=== PATIENT | female | born 1980 | race Caucasian/White ===

== ENCOUNTER → 2018-03-10 | Outpatient (REF) | payer OTHER | LOC: M SFHCLERA 16:23 | DX: J02.9 Acute pharyngitis, unspecified (principal) ==

== ENCOUNTER → 2018-11-05 | Outpatient (REF) | payer OTHER | LOC: M SFHCLERA 13:22 | PROVIDERS: ATTEND Physician Assistant | DX: J02.9 Acute pharyngitis, unspecified (principal) ==

== ENCOUNTER → 2020-03-24 | Outpatient (CLI) | payer OTHER ==
[~2020-03-24] MED LIST: GABA-843 PO; MECL-86 PO; ONDA-83 PO; SIME80TA12 PO; [UNRECOGNIZED DRUG - OTHER]
== END ==
LOC: M LABSMTC 12:28
PROVIDERS: ATTEND Anesthesiology
DX: Z01.812 Encounter for preprocedural laboratory examination (principal); Z20.828 Contact with and (suspected) exposure to other viral communicable diseases
CPT/HCPCS: C9803; U0003

== ENCOUNTER 2020-03-29 06:35 | Day surgery (SDC) | payer OTHER ==
[~2020-03-29] VITALS: Ht 165.1 cm; Wt 59.9 kg
[2020-03-29] MEDS ORDERED: NS 1,000 ML IV ONE (07:00)
[2020-03-29] MEDS ORDERED: LIDOCAINE 2% 100MG/5ML SDV (FOR ANES.) As Ordered ONE (07:21)
[2020-03-29] MEDS ORDERED: propofoL 200 MG/20 ML VIAL As Ordered ONE ×2 (07:24→07:50)
--- NOTE | 2020-03-29 07:51 | ROOR ---
Patient Name: Mell Welch Procedure Date: 03/29/2020 7:33 AM Date of : 1980 Age: 40 Room: [facility] Gender: Female Note Status: Finalized Procedure: Upper Endoscopy + Biopsies Indications: Abdominal bloating, Nausea with vomiting Providers: Nick Beaver MD Referring MD: AMRITA MORGAN MD Requesting Provider: Medicines: Monitored Anesthesia Care Complications: No immediate complications. Procedure: Pre-Anesthesia Assessment: - The heart rate, respiratory rate, oxygen saturations, blood pressure, adequacy of pulmonary ventilation, and response to care were monitored throughout the procedure. The Endoscope was introduced through the mouth, and advanced to the second part of duodenum. The upper GI endoscopy was accomplished without difficulty. The patient tolerated the procedure well. Findings: The Z-line was regular and was found 35 cm from the incisors. Multiple biopsies were obtained with cold forceps for evaluation to rule out Villa's Esophagus randomly at the gastroesophageal junction. A small hiatal hernia was present. Evidence of a gastric bypass was found. A gastric pouch with a small size was found. The staple line appeared intact. The gastrojejunal anastomosis was characterized by ulceration. This was traversed. The adwtt-nr-ysccisd limb was characterized by healthy appearing mucosa. Biopsies were taken with a cold forceps for Helicobacter pylori testing. Biopsies for histology were taken with a cold forceps for evaluation of celiac disease. The exam was otherwise without abnormality. Impression: - Z-line regular, 35 cm from the incisors. - Small hiatal hernia. - Gastric bypass with a small-sized pouch and intact staple line. Gastrojejunal anastomosis characterized by ulceration. Biopsied. - The examination was otherwise normal. - Multiple biopsies were obtained at the gastroesophageal junction. - The examination was otherwise normal. Recommendation: - Patient has a contact number available for emergencies. The signs and symptoms of potential delayed complications were discussed with the patient. Return to normal activities tomorrow. Written discharge instructions were provided to the patient. - Resume previous diet. - Discharge patient to home. - Follow an antireflux regimen. - Use Prilosec (omeprazole) 40 mg PO BID. - Use sucralfate tablets 1 gram PO QID. - Await pathology results. - Telephone GI clinic for pathology results in 1 week. - Return to referring physician. - The findings and recommendations were discussed with the patient. Nick Beaver MD Nick Beaver MD 03/29/2020 7:51:02 AM Electronically signed by Nick Beaver MD Number of Addenda: 0 Note Initiated On: 03/29/2020 7:33 AM Estimated Blood Loss: Estimated blood loss: none.
--- NOTE | 2020-03-29 08:11 | ROOR ---
Patient Name: Mell Welch Procedure Date: 03/29/2020 7:33 AM Date of : 1980 Age: 40 Room: [facility] Gender: Female Note Status: Finalized Procedure: Total Colonoscopy to Cecum + Ileoscopy + Bx. Indications: Change in bowel habits, Constipation Providers: Nick Beaver MD Referring MD: AMRITA MORGAN MD Requesting Provider: Medicines: Monitored Anesthesia Care Complications: No immediate complications. Procedure: Pre-Anesthesia Assessment: - The heart rate, respiratory rate, oxygen saturations, blood pressure, adequacy of pulmonary ventilation, and response to care were monitored throughout the procedure. The Colonoscope was introduced through the anus and advanced to the cecum, identified by appendiceal orifice and ileocecal valve. The colonoscopy was performed without difficulty. The patient tolerated the procedure well. The quality of the bowel preparation was good. Findings: The perianal and digital rectal examinations were normal. Non-bleeding internal hemorrhoids were found during retroflexion. The hemorrhoids were small and Grade I (internal hemorrhoids that do not prolapse). No other significant abnormalities were identified in a careful examination of the remainder of the colon. The terminal ileum appeared normal. Biopsies were taken with a cold forceps in the proximal ileum for histology. Biopsies for histology were taken with a cold forceps from the ascending colon, transverse colon and descending colon for evaluation of microscopic colitis. The exam was otherwise without abnormality on direct and retroflexion views. Impression: - Non-bleeding internal hemorrhoids. - The examined portion of the ileum was normal. - The examination was otherwise normal on direct and retroflexion views. - Biopsies were taken with a cold forceps for histology in the proximal ileum. - Biopsies were taken with a cold forceps from the ascending colon, transverse colon and descending colon for evaluation of microscopic colitis. - The exam was otherwise normal to the cecum. Recommendation: - Patient has a contact number available for emergencies. The signs and symptoms of potential delayed complications were discussed with the patient. Return to normal activities tomorrow. Written discharge instructions were provided to the patient. - High fiber diet. - Discharge patient to home. - Continue present medications. - Await pathology results. - Telephone GI clinic for pathology results in 1 week. - Repeat colonoscopy in 10 years for screening purposes. - Return to referring physician. - The findings and recommendations were discussed with the patient. Nick Beaver MD Nick Beaver MD 03/29/2020 8:10:46 AM Electronically signed by iNck Beaver MD Number of Addenda: 0 Note Initiated On: 03/29/2020 7:33 AM Estimated Blood Loss: Estimated blood loss: none.
[2020-03-29 08:41] VITALS: BP 117/69
== END 2020-03-29 08:43 | disposition home or self-care (01) ==
LOC: M OPP 06:35
PROVIDERS: ATTEND Internal Medicine Gastroenterology
DX: K64.0 First degree hemorrhoids (principal); R19.4 Change in bowel habit; K44.9 Diaphragmatic hernia without obstruction or gangrene; K28.9 Gastrojejunal ulcer, unspecified as acute or chronic, without hemorrhage or perforation; R14.0 Abdominal distension (gaseous); R11.2 Nausea with vomiting, unspecified; K58.9 Irritable bowel syndrome, unspecified; K21.9 Gastro-esophageal reflux disease without esophagitis; F17.210 Nicotine dependence, cigarettes, uncomplicated; Z79.899 Other long term (current) drug therapy; Z98.84 Bariatric surgery status

== ENCOUNTER → 2021-04-19 | Outpatient (CLI) | payer OTHER ==
[~2021-04-19] MED LIST changes: +GABA-282 PO; -GABA-843 PO; +IRON27TA2 PO; +OMEP40CA4 PO
--- NOTE | 2021-04-19 13:13 | REP ---
INDICATION: TENSION PNEUMOTHORAX. COMPARISON: 02/06/2015 portable exam TECHNIQUE: PA and lateral FINDINGS: The superior mediastinal structures are midline. The cardiac silhouette is unremarkable in size, shape, and position. The diaphragmatic surfaces of the lungs are regular, and the costophrenic angles are clear. The pulmonary jeffers are clear. The imaged osseous structures are intact. The lung jeffers are somewhat hyperexpanded. IMPRESSION: There is no acute cardiopulmonary disease. <Electronically signed by Jas Bledsoe > 04/19/21 [id number]
== END ==
LOC: M ADAMS 11:22
PROVIDERS: ATTEND Physician Assistant
DX: J93.0 Spontaneous tension pneumothorax (principal)

== ENCOUNTER → 2021-04-19 | Outpatient (REF) | payer OTHER ==
[2021-04-19 12:29] LABS: BASO # 0.1 10^3/uL (0.0-0.2); BASO % 0.7 % (0.0-1.0); EOS # 0.2 10^3/uL (0.0-0.5); EOS % 2.2 % (0.0-3.0); HEMATOCRIT 37.6 % (36.0-47.0); LYMPH # 1.9 10^3/uL (1.5-5.0); LYMPH % 27.3 % (24.0-44.0); MEAN CORPUSCULAR HEMOGLOBIN 29.6 pg (27.0-33.0); MEAN CORPUSCULAR HGB CONC 31.9 g/dl (32.0-36.5); MEAN CORPUSCULAR VOLUME 92.8 fl (80.0-96.0); MONO # 0.5 10^3/uL (0.0-0.8); MONO % 7.2 % (2.0-8.0); NEUTROPHILS # 4.3 10^3/uL (1.5-8.5); NEUTROPHILS % 62.2 % (36.0-66.0); PLATELET COUNT, AUTOMATED 361 10^3/uL (150-450); RED BLOOD COUNT 4.05 10^6/uL (4.00-5.40); WHITE BLOOD COUNT 6.8 10^3/uL (4.0-10.0)
[2021-04-19 13:33] LABS: ALBUMIN 3.4 GM/DL (3.2-5.2); ALT/SGPT 19 U/L (12-78); BILIRUBIN,TOTAL 0.3 MG/DL (0.2-1.0); BLOOD UREA NITROGEN 7 MG/DL (7-18); CALCIUM LEVEL 8.9 MG/DL (8.5-10.1); CARBON DIOXIDE LEVEL 29 MEQ/L (21-32); CHLORIDE LEVEL 110 MEQ/L (98-107); CREATININE FOR GFR 0.55 MG/DL (0.55-1.30); FERRITIN 16 NG/ML (8-252); FOLATE 8.1 NG/ML; FREE T4 0.97 NG/DL (0.76-1.46); GLOMERULAR FILTRATION RATE > 60.0 (>58); GLUCOSE, FASTING 78 MG/DL (70-100); IRON (FE) 83 UG/DL (50-170); PERCENT SATURATION 24.6 % (13.2-45.0); POTASSIUM SERUM 4.3 MEQ/L (3.5-5.1); SODIUM LEVEL 141 MEQ/L (136-145); THYROID STIMULATING HORMONE 0.543 uIU/ML (0.358-3.740); TOTAL 25(OH) VITAMIN D 14.8 NG/ML (30.0-100.0); TOTAL IRON BINDING CAPACITY 338 UG/DL (250-450); TOTAL PROTEIN 6.5 GM/DL (6.4-8.2); VITAMIN B12 LEVEL 339 PG/ML
[2021-04-19 13:45] LABS: HIV 1&2 SCREEN CENTAUR NEGATIVE (NEGATIVE)
[2021-04-20 18:09] LABS: ANA (HEP2) Negative (.)
== END ==
LOC: M SFHCADAM 10:51
PROVIDERS: ATTEND Physician Assistant
DX: R23.8 Other skin changes (principal); R11.0 Nausea; R21 Rash and other nonspecific skin eruption; R63.4 Abnormal weight loss; F32.1 Major depressive disorder, single episode, moderate

== ENCOUNTER → 2022-01-15 | Outpatient (REF) | LOC: M LAB 11:02 | PROVIDERS: ATTEND Nurse Practitioner Adult Health | DX: Z00.00 Encounter for general adult medical examination without abnormal findings (principal) ==

== ENCOUNTER → 2022-01-24 | Outpatient (REF) | LOC: M EMP 10:51 | PROVIDERS: ATTEND Family Medicine | DX: Z11.52 Encounter for screening for COVID-19 (principal) ==

== ENCOUNTER 2022-02-27 09:54 | Emergency (ER) | payer OTHER ==
[~2022-02-27] VITALS: Ht 162.6 cm; Wt 56.2 kg
[2022-02-27] MEDS ORDERED: SILV1CRE60 TOP (12:00)
[2022-02-27 12:10] VITALS: BP 135/70
== END 2022-02-27 12:11 | disposition home or self-care (01) ==
LOC: M ED 09:54
DX: T23.132A Burn of first degree of multiple left fingers (nail), not including thumb, initial encounter (principal); T31.0 Burns involving less than 10% of body surface; X13.1XXA Other contact with steam and other hot vapors, initial encounter; Y99.0 Civilian activity done for income or pay; F17.200 Nicotine dependence, unspecified, uncomplicated

== ENCOUNTER → 2023-03-25 | Outpatient (CLI) | payer OTHER ==
[~2023-03-25] MED LIST changes: +SILV1CRE60 TOP
[2023-03-25 12:11] LABS: HEPATITIS C VIRUS ABY INDEX 0.06 INDEX (<0.8)
[2023-03-26 16:12] LABS: HSV TYPE I IgG SPECIFIC <0.91 index (0.00-0.90)
== END ==
LOC: M LAB 09:11
PROVIDERS: ATTEND Nurse Practitioner Family
DX: Z11.3 Encounter for screening for infections with a predominantly sexual mode of transmission (principal); Z11.4 Encounter for screening for human immunodeficiency virus [HIV]

== ENCOUNTER → 2023-04-16 | Outpatient (REF) | payer OTHER | LOC: M LAB REF 12:04 | PROVIDERS: ATTEND Physician Assistant | DX: B34.9 Viral infection, unspecified (principal) ==

== ENCOUNTER → 2023-04-22 | Outpatient (CLI) | payer OTHER | LOC: M RAD 12:13 | PROVIDERS: ATTEND Physician Assistant | DX: R14.0 Abdominal distension (gaseous) (principal); R11.2 Nausea with vomiting, unspecified; R63.4 Abnormal weight loss; Z53.9 Procedure and treatment not carried out, unspecified reason ==

== ENCOUNTER → 2023-05-07 | Outpatient (CLI) | payer OTHER ==
[~2023-05-07] MED LIST changes: +GASTROGRAFIN SOLUTION 30ML As Ordered ONE; +ISOVUE-370 76% 100ML VIAL As Ordered ONE
== END ==
LOC: M RAD 07:58
PROVIDERS: ATTEND Physician Assistant
DX: R14.0 Abdominal distension (gaseous) (principal); R11.2 Nausea with vomiting, unspecified; R63.4 Abnormal weight loss; Z98.84 Bariatric surgery status
CPT/HCPCS: 74178; Q9963; Q9967

== ENCOUNTER → 2023-05-14 | Outpatient (CLI) | payer OTHER ==
[~2023-05-14] MED LIST changes: -GASTROGRAFIN SOLUTION 30ML As Ordered ONE; -ISOVUE-370 76% 100ML VIAL As Ordered ONE
== END ==
LOC: M ADAMS 14:09
PROVIDERS: ATTEND Physician Assistant
DX: M79.642 Pain in left hand (principal)

== ENCOUNTER → 2023-05-14 | Outpatient (REF) | payer OTHER ==
[2023-05-14 18:00] LABS: BASO # 0.1 10^3/uL (0.0-0.2); EOS # 0.2 10^3/uL (0.0-0.5); EOS % 3.5 % (0.0-3.0); HEMATOCRIT 34.1 % (36.0-47.0); HEMOGLOBIN 10.4 g/dl (12.0-15.5); MEAN CORPUSCULAR HEMOGLOBIN 23.3 pg (27.0-33.0); MEAN CORPUSCULAR HGB CONC 30.5 g/dl (32.0-36.5); MEAN CORPUSCULAR VOLUME 76.5 fl (80.0-96.0); MONO # 0.6 10^3/uL (0.0-0.8); MONO % 10.6 % (2.0-8.0); NEUTROPHILS # 3.1 10^3/uL (1.5-8.5); NEUTROPHILS % 51.6 % (36.0-66.0); PLATELET COUNT, AUTOMATED 377 10^3/uL (150-450); RED BLOOD COUNT 4.46 10^6/uL (4.00-5.40); WHITE BLOOD COUNT 6.1 10^3/uL (4.0-10.0)
[2023-05-14 18:21] LABS: HEMOGLOBIN A1c 5.1 % (4.0-6.0)
[2023-05-14 18:26] LABS: C REACTIVE PROTEIN QUANTITATIV < 0.40 MG/DL (<1.0)
[2023-05-14 18:29] LABS: RHEUMATOID FACTOR QUANT < 3.5 IU/ML (<14)
[2023-05-14 18:30] LABS: LIPASE 40 U/L (12-53)
[2023-05-14 18:32] LABS: ALBUMIN 4.1 G/DL (3.2-5.2); ALKALINE PHOSPHATASE 98 U/L (46-116); ALT/SGPT 10 U/L (7.0-40); AMYLASE 107 U/L (30-118); AST/SGOT 20 U/L (<34); BILIRUBIN,TOTAL 0.2 MG/DL (0.3-1.2); BLOOD UREA NITROGEN 8 MG/DL (9-23); CALCIUM LEVEL 9.5 MG/DL (8.5-10.1); CARBON DIOXIDE LEVEL 28 MMOL/L (20-31); CHLORIDE LEVEL 105 MMOL/L (98-107); FERRITIN 1.7 NG/ML (7.3-270.7); FOLATE 10.2 NG/ML (>5.4); FREE T4 0.87 NG/DL (0.89-1.76); GLOMERULAR FILTRATION RATE > 60.0 (>58); GLUCOSE, FASTING 89 MG/DL (60-100); IRON (FE) 11 UG/DL (50-170); PERCENT SATURATION 2.5 % (13.2-45.0); POTASSIUM SERUM 4.5 MMOL/L (3.5-5.1); SODIUM LEVEL 139 MMOL/L (136-145); TOTAL IRON BINDING CAPACITY 444 UG/DL (250-425); TOTAL PROTEIN 7.3 G/DL (5.7-8.2)
[2023-05-14 18:33] LABS: TOTAL 25(OH) VITAMIN D 9.9 NG/ML (20.0-100.0)
[2023-05-14 18:34] LABS: VITAMIN B12 LEVEL 404 PG/ML (211-911)
== END ==
LOC: M SFHCADAM 13:51
PROVIDERS: ATTEND Physician Assistant
DX: M79.641 Pain in right hand (principal); R63.4 Abnormal weight loss; R14.0 Abdominal distension (gaseous); R11.2 Nausea with vomiting, unspecified; Z98.84 Bariatric surgery status; E55.9 Vitamin D deficiency, unspecified; F17.210 Nicotine dependence, cigarettes, uncomplicated; F33.2 Major depressive disorder, recurrent severe without psychotic features; K21.9 Gastro-esophageal reflux disease without esophagitis

== ENCOUNTER → 2023-05-29 | Outpatient (CLI) | payer OTHER ==
[~2023-05-29] VITALS: Ht 162.6 cm; Wt 50.9 kg
[~2023-05-29] MED LIST changes: +ALBUTEROL SULFATE 2.5MG/0.5ML INH NEB SOLN INH PRN; +EPINEPHrine INJ 1 MG/ML 1ML AMP IM PRN; +IRON SUCROSE 500 MG in NS 250 ML OVER 4 HRS IV ONE; +NS 1,000 ML IV SCH; +diphenhydrAMINE 50MG/ML VIAL IV PRN; +methylPREDNISolone 125MG 2ML VIAL IV PRN
[2023-05-29 09:31] VITALS: BP 116/65; O2SAT 100
[2023-05-29 11:00] VITALS: BP 106/55; O2SAT 98
[2023-05-29 12:00] VITALS: BP 118/58; O2SAT 98
[2023-05-29 13:00] VITALS: BP 107/61; O2SAT 96
[2023-05-29 13:45] VITALS: BP 120/62; O2SAT 98
== END ==
LOC: M INFU 09:01
PROVIDERS: ATTEND Physician Assistant
DX: D50.9 Iron deficiency anemia, unspecified (principal)
CPT/HCPCS: 96365; 96366; J1756

== ENCOUNTER → 2023-11-11 | Outpatient (CLI) | payer OTHER ==
[~2023-11-11] MED LIST changes: -ALBUTEROL SULFATE 2.5MG/0.5ML INH NEB SOLN INH PRN; -EPINEPHrine INJ 1 MG/ML 1ML AMP IM PRN; -IRON SUCROSE 500 MG in NS 250 ML OVER 4 HRS IV ONE; -NS 1,000 ML IV SCH; -diphenhydrAMINE 50MG/ML VIAL IV PRN; -methylPREDNISolone 125MG 2ML VIAL IV PRN
== END ==
LOC: M RAD 15:43
PROVIDERS: ATTEND Physician Assistant
DX: M50.322 Other cervical disc degeneration at C5-C6 level (principal)

== ENCOUNTER → 2024-04-03 | Outpatient (CLI) | payer OTHER ==
[~2024-04-03] MED LIST changes: +GABA-1172 PO; -GABA-282 PO
[2024-04-03 11:40] LABS: BASO % 0.5 % (0.0-1.0); EOS # 0.1 10^3/uL (0.0-0.5); EOS % 1.9 % (0.0-3.0); LYMPH # 1.8 10^3/uL (1.5-5.0); LYMPH % 28.4 % (24.0-44.0); MEAN CORPUSCULAR HGB CONC 33.3 g/dl (32.0-36.5); MEAN CORPUSCULAR VOLUME 89.9 fl (80.0-96.0); MONO # 0.5 10^3/uL (0.0-0.8); PLATELET COUNT, AUTOMATED 264 10^3/uL (150-450); RED BLOOD COUNT 4.34 10^6/uL (4.00-5.40); WHITE BLOOD COUNT 6.4 10^3/uL (4.0-10.0)
[2024-04-03 12:20] LABS: BLOOD UREA NITROGEN 7 MG/DL (9-23); CALCIUM LEVEL 9.6 MG/DL (8.5-10.1); CARBON DIOXIDE LEVEL 30 MMOL/L (20-31); CHLORIDE LEVEL 109 MMOL/L (98-107); CREATININE FOR GFR 0.78 MG/DL (0.55-1.30); GLOMERULAR FILTRATION RATE > 60.0 (>58); GLUCOSE, FASTING 83 MG/DL (60-100); IRON (FE) 69 UG/DL (50-170); PERCENT SATURATION 23.2 % (13.2-45.0); POTASSIUM SERUM 4.1 MMOL/L (3.5-5.1); SODIUM LEVEL 140 MMOL/L (136-145); TOTAL IRON BINDING CAPACITY 298 UG/DL (250-425)
[2024-04-03 12:22] LABS: THYROID STIMULATING HORMONE 0.282 uIU/ML (0.55-4.78)
[2024-04-03 12:23] LABS: FERRITIN 29.1 NG/ML (7.3-270.7); TOTAL 25(OH) VITAMIN D 31.2 NG/ML (20.0-100.0)
== END ==
LOC: M LAB 11:17
PROVIDERS: ATTEND Physician Assistant
DX: F33.2 Major depressive disorder, recurrent severe without psychotic features (principal); D50.9 Iron deficiency anemia, unspecified; F17.210 Nicotine dependence, cigarettes, uncomplicated; Z98.84 Bariatric surgery status; R76.8 Other specified abnormal immunological findings in serum

== ENCOUNTER → 2024-05-21 | Outpatient (REF) | payer OTHER ==
[2024-05-21 14:20] LABS: FREE T4 1.01 NG/DL (0.89-1.76); THYROID STIMULATING HORMONE 0.422 uIU/ML (0.55-4.78)
[2024-05-21 14:23] LABS: TOTAL T3 98.1 NG/DL (60.0-181.0)
== END ==
LOC: M SFHCADAM 10:53
PROVIDERS: ATTEND Physician Assistant
DX: R79.89 Other specified abnormal findings of blood chemistry (principal)

== ENCOUNTER → 2025-03-10 | Outpatient (REF) | payer OTHER | LOC: M LAB REF 12:37 | PROVIDERS: ATTEND Physician Assistant | DX: B34.9 Viral infection, unspecified (principal) ==

== ENCOUNTER 2025-05-26 15:46 | Emergency (ER) | payer OTHER ==
[~2025-05-26] VITALS: Ht 162.6 cm; Wt 52.4 kg
[2025-05-26 16:32] LABS: BASO # 0.0 10^3/uL (0.0-0.2); BASO % 0.5 % (0.0-1.0); EOS # 0.1 10^3/uL (0.0-0.5); EOS % 1.7 % (0.0-3.0); LYMPH # 2.1 10^3/uL (1.5-5.0); LYMPH % 25.4 % (24.0-44.0); MONO # 0.6 10^3/uL (0.0-0.8); MONO % 6.9 % (2.0-8.0); NEUTROPHILS # 5.4 10^3/uL (1.5-8.5); NEUTROPHILS % 65.1 % (36.0-66.0); PLATELET COUNT, AUTOMATED 249 10^3/uL (150-450)
[2025-05-26 16:58] LABS: ALT/SGPT 11 U/L (7.0-40); AST/SGOT 21 U/L (<34); CALCIUM LEVEL 9.2 MG/DL (8.5-10.1); CARBON DIOXIDE LEVEL 29 MMOL/L (20-31); CHLORIDE LEVEL 107 MMOL/L (98-107); CREATININE FOR GFR 0.76 MG/DL (0.55-1.30); GLOMERULAR FILTRATION RATE > 90.0 (>58); POTASSIUM SERUM 3.7 MMOL/L (3.5-5.1); SODIUM LEVEL 140 MMOL/L (136-145)
[2025-05-26 17:04] LABS: HCG, SERUM QUALITATIVE NEGATIVE (NEGATIVE)
[2025-05-26 17:47] LABS: KETONE, URINE AUTO RFX NEGATIVE (NEGATIVE); LEUKOCYTE ESTERASE UR AUTO RFX NEGATIVE (NEGATIVE); MUCUS, URINE RFX SMALL (NEGATIVE); RBC, URINE AUTO RFX 0 /HPF (0-3); SQUAM EPITHELIAL CELL UR AURFX 1 /HPF (0-6); WBC, URINE AUTO RFX 1 /HPF (0-3)
[2025-05-26] MEDS ORDERED: ISOVUE-370 76% 100 ML VIAL As Ordered ONE (18:02)
[2025-05-26] MEDS: KETOROLAC 30 MG/ML 1 ML VIAL IV ONE (18:13)
[2025-05-26 19:36] LABS: NITRITE, URINE AUTO RFX POSITIVE (NEGATIVE)
[2025-05-26] MEDS ORDERED: AUGM500T34 PO (20:25)
[2025-05-26 20:37] VITALS: BP 141/69; TEMP 97; O2SAT 98
[2025-05-26] MEDS: AUGMENTIN 875 MG TAB PO ONE (20:41)
== END 2025-05-26 20:49 | disposition home or self-care (01) ==
LOC: M ED 15:46
DX: R10.32 Left lower quadrant pain (principal); Z20.9 Contact with and (suspected) exposure to unspecified communicable disease; F41.1 Generalized anxiety disorder; F32.9 Major depressive disorder, single episode, unspecified; F17.200 Nicotine dependence, unspecified, uncomplicated; F12.10 Cannabis abuse, uncomplicated; Z79.899 Other long term (current) drug therapy
CPT/HCPCS: 74177; 80048; 80076; 81001; 83690; 84703; 85025; 87088; 87186; 96374; 99284; J1885; Q9967

== ENCOUNTER 2025-05-29 16:16 | Emergency (ER) | payer OTHER ==
[~2025-05-29] VITALS: Ht 162.6 cm; Wt 52.7 kg
[~2025-05-29 16:16] MED LIST changes: +AUGM500T34 PO
[2025-05-29] MEDS: ACETAMINOPHEN *IV* 1,000 MG in IV 1 EA IV ONE (18:27)
[2025-05-29 18:40] LABS: BASO # 0.1 10^3/uL (0.0-0.2); BASO % 0.7 % (0.0-1.0); EOS # 0.2 10^3/uL (0.0-0.5); EOS % 3.3 % (0.0-3.0); LYMPH # 2.5 10^3/uL (1.5-5.0); LYMPH % 34.6 % (24.0-44.0); MONO # 0.4 10^3/uL (0.0-0.8); MONO % 5.1 % (2.0-8.0); NEUTROPHILS # 4.1 10^3/uL (1.5-8.5); NEUTROPHILS % 56.0 % (36.0-66.0); PLATELET COUNT, AUTOMATED 291 10^3/uL (150-450)
[2025-05-29 19:08] LABS: ALT/SGPT 11 U/L (7.0-40); AST/SGOT 17 U/L (<34); CALCIUM LEVEL 9.8 MG/DL (8.5-10.1); CARBON DIOXIDE LEVEL 30 MMOL/L (20-31); CHLORIDE LEVEL 105 MMOL/L (98-107); CREATININE FOR GFR 0.73 MG/DL (0.55-1.30); GLOMERULAR FILTRATION RATE > 90.0 (>58); POTASSIUM SERUM 4.4 MMOL/L (3.5-5.1); SODIUM LEVEL 140 MMOL/L (136-145)
[2025-05-29] MEDS: GASTROGRAFIN SOLUTION 30ML PO SCH (19:49)
[2025-05-29] MEDS ORDERED: ISOVUE-370 76% 100 ML VIAL As Ordered ONE (21:49)
[2025-05-29] MEDS ORDERED: MIRA3350 PO (23:06)
[2025-05-29] MEDS ORDERED: DICY-61 PO (23:06)
[2025-05-29 23:13] VITALS: BP 125/71; TEMP 98; O2SAT 99
[2025-05-29] MEDS: MAGNESIUM CITRATE 300 ML BTL PO ONE (23:33)
== END 2025-05-29 23:35 | disposition home or self-care (01) ==
LOC: M ED 16:16
DX: K59.00 Constipation, unspecified (principal); Z98.84 Bariatric surgery status; F17.200 Nicotine dependence, unspecified, uncomplicated
CPT/HCPCS: 74177; 76830; 76856; 80048; 80076; 83690; 85025; 96374; 99284; J0134; Q9963; Q9967

== ENCOUNTER → 2025-06-02 | Outpatient (CLI) | payer OTHER ==
[~2025-06-02] MED LIST changes: +DICY-61 PO; +MIRA3350 PO
== END ==
LOC: M RAD 14:07
PROVIDERS: ATTEND Student in an Organized Health Care Education/Training Program
DX: R10.32 Left lower quadrant pain (principal)